=== PATIENT | female | born 1950 | race Caucasian/White ===

== ENCOUNTER 2022-07-31 12:37 | Outpatient (CLI) | payer MEDICARE, SELFPAY ==
--- NOTE | 2022-07-31 12:45 | ECHO_ITS ---
Patient Info Name: Francisca Flores Age: 72 years : 1950 Gender: Female Ht: 61 in Wt: 209 lbs BSA: 2.07 m2 HR: 87 bpm BP: 108 / 60 mmHg Technical Quality: Fair Exam Date: 07/31/2022 1:25 PM Exam Location: [facility] Patient Status: Outpatient Admit Date: 07/31/2022 Staff Ordering Physician: Fei Tovar DO Brimming Machine Operator: Jennifer Ravi RDCS Attending Provider: Fei Tovar DO Referring Physician: Guy LOPEZ; Exam Type: CA echo doppler color flow Study Info Indications N18.3 - Chronic kidney disease, stage 3 (moderate) Complete two-dimensional, color flow and Doppler transthoracic echocardiogram is performed. Summary 1. Complete two-dimensional, color flow and Doppler transthoracic echocardiogram is performed. 2. Left ventricular chamber dimension is normal. 3. Left ventricular systolic function is normal, estimated at 65-70%. 4. The left ventricular diastolic function is grade I diastolic dysfunction. 5. E/e' 15 is elevated. 6. There is mild aortic valve sclerosis. 7. There is mild aortic valve stenosis based on a peak velocity of 185 cm/s, mean gradient of 9 mmHg, and aortic valve area of 1.8 cm2. 8. There is trace tricuspid valve regurgitation. 9. No pulmonary hypertension, estimated pulmonary arterial systolic pressure is 33 mmHg. Left Ventricle E/e' 15 is elevated. Left ventricular chamber dimension is normal. Left ventricular systolic function is normal, estimated at 65-70%. The left ventricular diastolic function is grade I diastolic dysfunction. Right Ventricle Right ventricular systolic function is normal and with normal TAPSE 1.8 cm. Right ventricular chamber dimension is normal. Left Atria Left atrial chamber dimension is normal. Right Atria Right atrial chamber dimension is normal. Aortic Valve There is mild aortic valve stenosis based on a peak velocity of 185 cm/s, mean gradient of 9 mmHg, and aortic valve area of 1.8 cm2. The aortic valve is probable trileaflet. There is mild aortic valve sclerosis. There is no aortic valve regurgitation. Pulmonic Valve There is no pulmonic regurgitation. Mitral Valve There is no mitral valve stenosis. There is no mitral valve regurgitation. Tricuspid Valve There is trace tricuspid valve regurgitation. No pulmonary hypertension, estimated pulmonary arterial systolic pressure is 33 mmHg. Pericardium/Pleural There is no pericardial effusion. Inferior Vena Cava Normal inferior vena cava with >50% collapse upon inspiration consistent with normal right atrial pressure, 5 mmHg. Aorta The aortic root size at the sinus of Valsalva is normal. Left Ventricular Outflow Tract Name Value Normal LVOT 2D LVOT Diameter 2.0 cm LVOT Doppler LVOT Peak Gradient 5 mmHg LVOT Mean Gradient 4 mmHg LVOT VTI 21 cm LVOT VTI/AV VTI Ratio 0.6 LVOT Stroke Volume 63 ml LVOT CO 5.5 l/min LVOT CI 2.7 l/min/m2
== END 2022-07-31 12:38 | disposition home or self-care (01) ==
PROVIDERS: Visit Provider Internal Medicine Cardiovascular Disease
DX: N18.30 Chronic kidney disease, stage 3 unspecified (principal); I35.1 Nonrheumatic aortic (valve) insufficiency
CPT/HCPCS: 93306

== ENCOUNTER 2024-04-14 14:19 | Outpatient (CLI) | payer MEDICARE, SELFPAY ==
--- NOTE | 2024-04-14 14:22 | ECHO_ITS ---
Patient Info Name: Francisca Flores Age: 73 years : 1950 Gender: Female Ht: 61 in Wt: 190 lbs BSA: 1.97 m2 HR: 80 bpm BP: 129 / 65 mmHg Heart Rhythm: Sinus Rhythm Technical Quality: Fair Exam Date: 04/14/2024 2:29 PM Exam Location: Echo Lab Patient Status: Outpatient Admit Date: 04/14/2024 Staff Ordering Physician: Fei Tovar DO Business Leader: Lisa Salas RDCS Attending Provider: Fei Tovar DO Referring Physician: Guy LOPEZ; Exam Type: CA echo doppler color flow Study Info Indications I35.0 - Nonrheumatic aortic (valve) stenosis Complete two-dimensional, color flow and Doppler transthoracic echocardiogram is performed. Summary 1. Complete two-dimensional, color flow and Doppler transthoracic echocardiogram is performed. 2. Left ventricular chamber dimension is normal. 3. Left ventricular systolic function is normal, estimated at 65-70%. 4. The left ventricular diastolic function is grade I diastolic dysfunction. 5. E/e' 21 is elevated. 6. Left atrial chamber dimension is mildly enlarged. 7. There is severe aortic valve sclerosis. 8. There is moderate aortic valve stenosis based on a peak velocity of 228 cm/s, mean gradient of 11 mmHg, and aortic valve area of 1.3 cm2. 9. No pulmonary hypertension, estimated pulmonary arterial systolic pressure is 32 mmHg. Left Ventricle E/e' 21 is elevated. Left ventricular chamber dimension is normal. Left ventricular systolic function is normal, estimated at 65-70%. The left ventricular diastolic function is grade I diastolic dysfunction. Right Ventricle Right ventricular systolic function is normal and with normal TAPSE 2.2 cm. Right ventricular chamber dimension is normal. Left Atria Left atrial chamber dimension is mildly enlarged. Right Atria Right atrial chamber dimension is normal. Aortic Valve The aortic valve is probable trileaflet. There is severe aortic valve sclerosis. There is moderate aortic valve stenosis based on a peak velocity of 228 cm/s, mean gradient of 11 mmHg, and aortic valve area of 1.3 cm2. There is no aortic valve regurgitation. Pulmonic Valve There is no pulmonic regurgitation. Mitral Valve There is no mitral valve stenosis. There is no mitral valve regurgitation. Tricuspid Valve There is no tricuspid valve regurgitation. No pulmonary hypertension, estimated pulmonary arterial systolic pressure is 32 mmHg. Pericardium/Pleural There is no pericardial effusion. Inferior Vena Cava Normal inferior vena cava with >50% collapse upon inspiration consistent with normal right atrial pressure, 5 mmHg. Aorta The aortic root size at the sinus of Valsalva is normal. Left Ventricular Outflow Tract Name Value Normal LVOT 2D LVOT Diameter 2.0 cm LVOT Doppler LVOT Peak Gradient 4 mmHg LVOT Mean Gradient 2 mmHg LVOT VTI 19 cm LVOT VTI/AV VTI Ratio 0.4 LVOT Stroke Volume 58 ml LVOT CO 4.4 l/min LVOT CI 2.2 l/min/m2 Pulmonic Valve
== END 2024-04-14 14:20 | disposition home or self-care (01) ==
LOC: ANHCARD 14:20
PROVIDERS: PCP Physician Assistant; Visit Provider Internal Medicine Cardiovascular Disease
DX: I35.8 Other nonrheumatic aortic valve disorders (principal); I51.89 Other ill-defined heart diseases
CPT/HCPCS: 93306

== ENCOUNTER 2025-02-08 11:43 | Outpatient (CLI) | payer MEDICARE, SELFPAY ==
--- NOTE | ~2025-02-08 | XR_ITS ---
AP view of the pelvis and AP and lateral views of the left hip Clinical history: Pain Findings: No acute fracture or dislocation is seen. Osseous alignment is anatomic. Bilateral hip arth roplasties are in place. Soft tissues are unremarkable. Impression: No acute abnormality is seen. Bilateral hip arthroplasties. Reviewed, dictated and finalized at [facility]. Impression: No acute abnormality is seen. Bilateral hip arthroplasties.
== END 2025-02-08 11:44 | disposition home or self-care (01) ==
LOC: GOSHIMG 11:44
PROVIDERS: PCP Physician Assistant; Visit Provider Orthopaedic Surgery
DX: Z96.642 Presence of left artificial hip joint (principal)
CPT/HCPCS: 73502

== ENCOUNTER 2025-05-07 12:33 | Outpatient (CLI) | payer MEDICARE, SELFPAY ==
--- OUTSIDE RECORDS SUMMARY | 2025-05-07 12:37 | XMS_ITS | Encounter Summary ---
Author Organization [facility] Address [address] [place] [address] Phone Care Team Providers Care Bull Float Finisher Name Role Phone Anny Sheikh PAC Primary Care Pro vider Reason for Visit * Reason Comments Medication Refill Encounter Details Date Type Department Care Team (Late st Contact Info) Description 03/01/2021 Refill [facility] - Family Medicine [facility] [address] [place] [address] Anny Sheikh, PAC [address] [address] Medication Refill Social History Tobacco Use Types Packs/Day Years Used Date Smoking Tobacco: Never Smokeless Tobacco: Never Alcohol Use Standard Drinks/Week Comments No 0 (1 standard drink = 0.6 oz pur e alcohol) 2 drinks per year PHQ-2 Answer Date Recorded PHQ-2 Score 0 06/26/2019 Education Answer Date Recorded What is the highest level of school you have completed or the highest degree you have received? Some college, no degree 11/05/2020 Comments No Sex and Gender Information Value Date Recorded Sex Assigned at Not on file Legal Sex Female 9:47 PM CDT Gender Identity Not on file Sexual Orientation Not on file documented as of this encounter Miscellaneous Notes * Telephone Encounter - Rosaline Moore RN - 03/03/2021 9:51 AM CDT Medication failed the protocol, provider to review and approve the medication order if appropriate. Requested Prescriptions Pending Prescriptions Disp Refills pramipexole (MIRAPEX) 0.5 MG Tablet [Pharmacy Med Name: PRAMIPEXOLE 0.5 MG TABLET] 90 Tablet 0 Sig: TAKE 1 TABLET BY MOUTH EVERY DAY AT NIGHT [facility] Neurology: Parkinsonian Agents Passed - 03/01/2021 8:22 PM Passed - Valid encounter within last 12 months Past Office Visits Recent Outpatient Visits 3 months ago Type 2 diabetes mellitus without complication, unspecified whether intermediate insulin use (HCC) [facility] - Anny Orellana PAC 7 months ago Type 2 diabetes mellitus without complication, unspecified whether watcher automat long goods insulin use (HCC) [facility] - Anny Orellana PAC 10 months ago Hyperlipidemia, unspecified hyperlipidemia type [facility] - Anny Orellana PAC 1 year ago Hyperlipidemia, unspecified hyperlipidemia type [facility] - Anny Orellana PAC 1 year ago Elevated BUN [facility] - Anny Orellana PAC Upcoming Appointments Future Appointments In 2 months Anny Sheikh PAC [facility] Internal Medicine - [place] MILITARY SCIENCE TEACHER - Recent and Past Visits Recent Visits Date Type Provider Dept 11/10/20 Office Visit Anny Sheikh PAC [facility] 08/05/20 Office Visit Anny Sheikh PAC [facility] 05/05/20 Office Visit Anny Sheikh PAC [facility] Showing recent visits within past 460 days with a meds authorizing provider and meeting all other requirements Future Appointments Date Type Provider Dept 05/10/21 Appointment Anny Sheikh PAC [facility] Showing future appointments within next 90 days with a meds authorizing provider and meeting all other requirements Passed - Last BP in normal range BP Readings from Last 1 Encounters: 11/10/20 128/70 documented in this encounter Plan of Treatment Upcoming Encounters Date Type Department Care Team (Late st Contact Info) Description 10/13/2025 10:45 AM YARD DEMURRAGE CLERK Office Visit [facility] - Internal Medicine - [place] [address] [place] [address] Anny Sheikh, PAC [address] [place] [address] documented as of this encounter Visit Diagnoses Not on filedocumented in this encounter Additional Health Concerns Infection Onset Date Last Indicated Resolved Time COVID - 19 04/07/2021 04/07/2021 04/08/2021 6:43 AM CDT Assessment Noted Time PHQ-9 Depression Total Score: 0 11/05/19 9:00 AM YARD DEMURRAGE CLERK documented as of this encounter Care Teams Bull Float Finisher Relationship Specialty Start Date End Date Anny Sheikh, PAC [address] [place] [address] PCP - General Physician Electrician Deck 09/26/16 documented as of this encounter
--- OUTSIDE RECORDS SUMMARY | 2025-05-07 12:37 | XMS_ITS | Encounter Summary ---
Author Organization [facility] Address [address] [place] [address] Phone Care Team Providers Care Dental Hygienist Name Role Phone Anny Sheikh PAC Primary Care Pro vider Reason for Visit * Reason Comments Medication Refill Encounter Details Date Type Department Care Team (Late st Contact Info) Description 10/12/2020 Refill [facility] - [facility] [address] [place] [address] Anny Sheikh, PAC [address] [place] [address] Medication Refill Social History Tobacco Use Types Packs/Day Years Used Date Smoking Tobacco: Never Smokeless Tobacco: Never Alcohol Use Standard Drinks/Week Comments No 0 (1 standard drink = 0.6 oz pur e alcohol) 2 drinks per year PHQ-2 Answer Date Recorded PHQ-2 Score 0 06/26/2019 Comments No Sex and Gender Information Value Date Recorded Sex Assigned at Not on file Legal Sex Female 9:47 PM CDT Gender Identity Not on file Sexual Orientation Not on file documented as of this encounter Miscellaneous Notes * Telephone Encounter - Addis Jean Baptiste RN - 10/12/2020 3:39 PM CST This is a duplicate request of medication ordered 2020-10-10 STITCHER documented in this encounter Plan of Treatment Upcoming Encounters Date Type Department Care Team (Late st Contact Info) Description 10/13/2025 10:45 AM LOCKSTITCHER Office Visit [facility] - Internal Medicine - [place] [address] [place] [address] Anny Sheikh, PAC [address] [place] [address] documented as of this encounter Visit Diagnoses Not on filedocumented in this encounter Additional Health Concerns Infection Onset Date Last Indicated Resolved Time COVID - 19 04/07/2021 04/07/2021 04/08/2021 6:43 AM CDT Assessment Noted Time PHQ-9 Depression Total Score: 0 11/05/19 20 9:00 AM LOCKSTITCHER documented as of this encounter Care Teams Dental Hygienist Relationship Specialty Start Date End Date Anny Sheikh, PAC [address] [place] [address] PCP - General Physician Trim Technician 09/26/16 documented as of this encounter
--- OUTSIDE RECORDS SUMMARY | 2025-05-07 12:37 | XMS_ITS | Clinical Summary ---
Author Organization [facility] [employer] [facility] , [facility] Address [address] [place] [phone] Phone Care Team Providers Care Furnace Room Supervisor Name Role Phone Anny Sheikh Primary Care Provider Allergies Active Allergy Reactions Criticality Noted Date Comments Dexameth Sod Phos & Anesthetic Other (see comments) 09/29/2021 Propofol Nausea And Vomiting,Nausea Low 12/19/2017 Sertraline Other (see comments) Medium 12/19/2017 Vision problems Trolamine (Triethanolamine) Nausea And Vomiting,Other (see comments) Low 03/20/2018 Medications losartan (COZAAR) 100 MG tablet TAKE 1 TABLET BY MOUTH AT BEDTIME 90 tablet 1 12/11/2024 Active atorvastatin (LIPITOR) 40 MG tablet TAKE 1 TABLET BY MOUTH AT BEDTIME 90 tablet 1 01/16/2025 Active indapamide (LOZOL) 1.25 MG tablet TAKE 1 TABLET (1.25 MG TOTAL) BY MOUTH 1 (ONE) TIME EACH DAY IN THE MORNING 90 tablet 1 02/16/2025 Active amLODIPine (NORVASC) 5 MG tablet Take 1 tablet (5 mg total) by mouth at bed time 90 tablet 04/02/2025 Active ergocalciferol 1.25 MG (95843 UT) capsule TAKE 1 CAPSULE (50,000 UNITS TOTAL) BY MOUTH ONCE WEEKLY 12 capsule 1 04/07/2025 Active Active Problems Problem Noted Date Diagnosed Date Essential hypertension 05/03/2025 Encounters Date Type Department Care Team Description 05/03/2025 Orders Only [facility] [address] [address] Makenna Fermin Essential hypertension (Primary Dx) 04/08/2025 Office Communication [address] [address] Yobani Camarillo, 04/07/[address] [phone] Yobani Camarillo, 04/02/2025 9:30 AM CDT Office Visit [address] [phone] Yobani Camarillo DO Stage 3 chronic kidney disease, not otherwise specified (HCC) (Primary Dx); Aortic valve stenosis; Paraneoplastic neuromyopathy and neuropathy (HCC); Ovarian cancer (HCC); Hypertensive chronic kidney disease; Type 2 diabetes mellitus with diabetic chronic kidney disease (HCC); Pure hypercholesterolemia , not otherwise specified 03/25/2025 Documentation Only [address] [phone] Yobani Camarillo DO 02/14/[address] [phone] Yobani Camarillo DO from Last 3 Months Social History Tobacco Use Types Packs/Day Years Used Date Smoking Tobacco: Never Alcohol Use Standard Drinks/Week Comments Yes 0 (1 standard drink = 0.6 oz pure alcohol) Alcoholic Drinks/day: Occasional social drink Comments Unknown Sex and Gender Information Value Date Recorded Sex Assigned at Not on file Legal Sex Female 2:50 PM EDT Gender Identity Not on file Sexual Orientation Not on file Last Filed Vital Signs Vital Sign Reading Time Taken Comments Blood Pressure 140/68 04/02/2025 9:35 AM CDT Pulse 66 04/02/2025 9:35 AM CDT Temperature 36.2 C (97.2 F) 04/02/2025 9:35 AM CDT Respiratory Rate 20 04/02/2025 9:35 AM CDT Oxygen Saturation 97% 04/02/2025 9:35 AM CDT Inhaled Oxygen Concentration - - Weight 83.5 kg (184 lb) 04/02/2025 9:35 AM CDT Height 154.9 cm (5' 1) 04/02/2025 9:35 AM CDT Body Mass Index 34.77 04/02/2025 9:35 AM CDT Plan of Treatment Upcoming Encounters Date Type Department Care Team (Late st Contact Info) Description 07/09/2025 9:15 AM CDT Office Visit [facility] [address] [phone] [place] [address] [place] [phone] Health Maintenance Due Date Last Done Comments Diabetes: Ophthalmology Exam 03/23/2021 Diabetes: Pedal Pulse Checked 03/23/2021 Diabetes: Sensory Foot Exam 03/23/2021 Diabetes: Visual Foot Exam 03/23/2021 Diabetes: Hemoglobin A1C 06/24/2025 025, 10/01/2024, 08/19/2024, Additional history exists Influenza Vaccine (#1) 2025 0, 08/17/2019, 07/29/2018, Additional history exists Pneumococcal Vaccine: 50+ Years Completed 07/23/2017, 02/07/2016, 10/28/2009 Hepatitis B Vaccine Aged Out No longe r eligible based on patient's age to complete this topic Insurance Medicare [facility]IC [facility] Care Teams Furnace Room Supervisor Relationship Specialty Start Date End Date Anny Sheikh PA [address] [place] [address] PCP - General Physician Sheet Metal Production Worker 08/15/21
--- OUTSIDE RECORDS SUMMARY | 2025-05-07 12:37 | XMS_ITS | Encounter Summary ---
Author Organization [facility] Address [address] [place] [address] Phone Care Team Providers Care Sock Liner Name Role Phone Anny Sheikh PAC Primary Care Pro vider Reason for Visit * Reason Comments Medication Refill Encounter Details Date Type Department Care Team (Late st Contact Info) Description 04/18/2023 [facility]ill [facility] - [place] [address] [place] [phone] Anny Sheikh, PAC [address] [place] [address] Medication Refill Social History Tobacco Use Types Packs/Day Years Used Date Smoking Tobacco: Never Smokeless Tobacco: Never Alcohol Use Standard Drinks/Week Comments No 0 (1 standard drink = 0.6 oz pur e alcohol) 2 drinks per year PHQ-2 Answer Date Recorded Total Score - Questions 1-9 0 12/26 Education Answer Date Recorded What is the [...] encounter Miscellaneous Notes * Telephone Encounter - Roseann Escalona RN - 04/18/2023 8:43 AM CDT Medication failed the protocol, provider to review and approve the medication order if appropriate. Requested Prescriptions Pending Prescriptions Disp Refills fenofibrate micronized (LOFIBRA) 200 MG Capsule [Pharmacy Med Name: FENOFIBRATE CAP 200MG] 90 Capsule 3 Sig: TAKE 1 CAPSULE DAILY Fibrates Protocol Failed - 04/18/2023 12:51 AM Failed - Lipid panel in past 12 months LDL Date Value Ref Range Status 05/05/2021 59 5 - 130 mg/dL Final HDL CHOLESTEROL Date Value Ref Range Status 05/05/2021 39.5 (L) >40 mg/dL Final CHOLESTEROL Date Value Ref Range Status 05/05/2021 139 <=200 mg/dL Final TRIGLYCERIDES Date Value Ref Range Status 05/05/2021 202 (H) <150 mg/dL Final VLDL Date Value Ref Range Status 05/05/2021 40 5 - 55 mg/dL Final CHOL/HDL RATIO Date Value Ref Range Status 05/05/2021 3.5 0.0 - 4.4 Final NON-HDL CHOLESTEROL Date Value Ref Range Status 05/05/2021 99.5 <130 mg/dL Final Passed - Visit with relevant provider in past 12 months or upcoming 90 days Recent Visits Date Type Provider Dept 01/23/23 Office Visit Anny Sheikh PAC [facility] 07/25/22 Office Visit Anny Sheikh, SUPRIYA [facility] [place] Showing recent visits within past 365 days and meeting all other requirements Future Appointments No visits were found meeting these conditions. Showing future appointments within next 90 days and meeting all other requirements documented in this encounter Plan of Treatment Upcoming Encounters Date Type Department Care Team (Late st Contact Info) Description 10/13/2025 10:45 AM COKE DRAWER Office Visit [facility] - Internal Medicine - [place] [address] [place] [address] Anny Sheikh, PAC [address] [place] [address] documented as of this encounter Visit Diagnoses Not on filedocumented in this encounter Additional Health Concerns Assessment Noted Time PHQ-9 Depression Total Score: 0 05/10/20 21 9:00 AM CDT documented as of this encounter Care Teams Sock Liner Relationship Specialty Start Date End Date Anny Sheikh, PAC [address] [place] [address] PCP - General Physician Filament Shaper 09/26/16 documented as of this encounter
--- OUTSIDE RECORDS SUMMARY | 2025-05-07 12:37 | XMS_ITS | Encounter Summary ---
Author Organization [facility] Address [address] [place] [address] Phone Care Team Providers Care Traffic Clerk Name Role Phone Anny Sheikh PAC Primary Care Pro vider Reason for Visit * Reason Comments Medication Refill Encounter Details Date Type Department Care Team (Late st Contact Info) Description 01/24/2021 Refill [facility] - Family Medicine [facility] [address] [place] [address] Anny Sheikh, PAC [address] [place] [address] Medication Refill Social History Tobacco [...] encounter Miscellaneous Notes * Telephone Encounter - Catrachita Dumont RN - 01/25/2021 9:31 AM CDT Please review and sign. documented in this encounter Plan of Treatment Upcoming Encounters Date Type Department Care Team (Late st Contact Info) Description 10/13/2025 10:45 AM OIL WELL SERVICES SUPERVISOR Office Visit [facility] - Internal Medicine - [place] [address] [place] [address] Anny Sheikh, SUPRIYA [address] [place] [address] documented as of this encounter Visit Diagnoses Not on filedocumented in this encounter Additional Health Concerns Infection Onset Date Last Indicated Resolved Time COVID - 19 04/07/2021 04/07/2021 04/08/2021 6:43 AM CDT Assessment Noted Time PHQ-9 Depression Total Score: 0 11/05/19 20 9:00 AM OIL WELL SERVICES SUPERVISOR documented as of this encounter Care Teams Traffic Clerk Relationship Specialty Start Date End Date Anny Sheikh, SUPRIYA [address] [place] [address] PCP - General Physician Knocker Out 09/26/16 documented as of this encounter
--- OUTSIDE RECORDS SUMMARY | 2025-05-07 12:37 | XMS_ITS | Encounter Summary ---
Author Organization [facility] Address [address] [place] [address] Phone Care Team Providers Care Manager Of Disaster Recovery Name Role Phone Anny Sheikh PAC Primary Care Pro vider Reason for Visit * Reason Comments Medication Refill Encounter Details Date Type Department Care Team (Late st Contact Info) Description 12/31/2023 Refill [facility] - Family Medicine [facility] [address] [place] [address] Anny Sheikh, PAC [address] [place] [address] Medication Refill Social History Tobacco [...] Telephone Encounter - Roseann Escalona RN - 01/01/2024 9:44 AM CST Medication failed the protocol, provider to review and approve the medication order if appropriate. Requested Prescriptions Pending Prescriptions Disp Refills pramipexole (MIRAPEX) 0.5 MG Tablet [Pharmacy Med Name: PRAMIPEXOLE 0.5 MG TABLET] 90 Tablet 0 Sig: TAKE 1 TABLET BY MOUTH EVERY DAY AT NIGHT Antiparkinson Dopaminergics and COMT Protocol Passed - 12/31/2023 7:04 PM Passed - Visit with relevant provider in the past 9 months or upcoming 90 days Recent Visits Date Type Provider Dept 11/08/23 Clinical [facility] 11/06/23 Office Visit Anny Sheikh, PAC [facility] 08/22/23 Office Visit Anny Sheikh, PAC [facility] 07/26/23 Office Visit Anny Sheikh, PAC [facility] 06/03/23 Office Visit Anny Sheikh, PAC [facility] Showing recent visits within past 270 days and meeting all other requirements Future Appointments Date Type Provider Dept 02/19/24 Appointment Anny Sheikh, PAC [facility] Showing future appointments within next 90 days and meeting all other requirements Passed - Blood pressure on record in past 12 months Clinician-entered: BP Readings from Last 3 Encounters: 11/06/23 102/62 08/22/23 136/66 08/15/23 120/66 Patient-entered: No data recorded benzonatate (TESSALON) 100 MG Capsule [Pharmacy Med Name: BENZONATATE 100 MG CAPSULE] 30 Capsule 0 Sig: TAKE 1 CAPSULE BY MOUTH TWICE A DAY NEEDED FOR COUGH FOR UP TO 30 DAYS Not Delegated - Anti-Tussives Protocol Failed - 12/31/2023 7:04 PM Failed - This refill cannot be delegated Failed - Active on medication list Passed - Visit with relevant provider in past 12 months or upcoming 90 days Recent Visits Date Type Provider Dept 11/06/23 Office Visit Anny Sheikh, PAC [facility] 09/05/23 Telemedicine Anny Sheikh, PAC [facility] 08/22/23 Office Visit Anny Sheikh, PAC [facility] 07/26/23 Office Visit Anny Sheikh, PAC [facility] 06/03/23 Office Visit Anny Sheikh, PAC [facility] 01/23/23 Office Visit Anny Sheikh, PAC [facility] Showing recent visits within past 365 days and meeting all other requirements Future Appointments Date Type Provider Dept 02/19/24 Appointment Anny Sheikh PAC [facility] Showing future appointments within next 90 days and meeting all other requirements ING FACULTY documented in this encounter Plan of Treatment Upcoming Encounters Date Type Department Care Team (Late st Contact Info) Description 10/13/2025 10:45 AM NURSING FACULTY Office Visit [facility] - Internal Medicine - [place] [address] [place] [address] Anny Sheikh PAC [address] [place] [address] documented as of this encounter Visit Diagnoses Not on filedocumented in this encounter Additional Health Concerns Assessment Noted Time PHQ-9 Depression Total Score: 0 05/10/20 21 9:00 AM CDT documented as of this encounter Care Teams Manager Of Disaster Recovery Relationship Specialty Start Date End Date Anny Sheikh PAC [address] [place] [address] PCP - General Physician Telephone Engineer 09/26/16 documented as of this encounter
--- OUTSIDE RECORDS SUMMARY | 2025-05-07 12:37 | XMS_ITS | Encounter Summary ---
Author Organization [facility] Address [address] [address] Phone Care Team Providers Care Screw Machine Repairer Name Role Phone Anny Sheikh PAC Primary Care Pro vider Reason for Visit * Reason Comments Medication Refill Encounter Details Date Type Department Care Team (Late st Contact Info) Description 04/17/2024 Refill [facility] - Internal Medicine - [place] [address] [place] [phone] Anny Sheikh, PAC [address] [address] Medication Refill Social History Tobacco Use Types Packs/Day Years Used Date Smoking Tobacco: Never Smokeless Tobacco: Never Alcohol Use Standard Drinks/Week Comments No 0 (1 standard drink = 0.6 oz pur e alcohol) 2 drinks per year [facility] Utilities Answer Date Recorded In the past 12 months has e electric, gas, oil, or water company threatened to shut off services in your home? No 02/17/2024 Social Connection and Isolation Panel Answer Date Recorded In a typical week, how many times do you talk on the phone with family, friends, or neighbors? Three times a week 02/17/2024 How often do you get togethe r with friends or relatives? Three times a week 02/17/2024 How often do you attend chur ch or nondenominational services? More than 4 times per year 02/17/2024 Do you belong to any clubs o r organizations such as confucianist groups, unions, fraternal or athletic groups, or school groups? No 02/17/2024 How often do you attend meet ings of the clubs or organizations you belong to? Never 02/17/2024 Are you , , di vorced, , never , or living with a partner? 02/17/2024 AUDIT-C Answer Date Recorded Q1: How often do you have a drink containing alcohol? Never 02/17/2024 Q2: How many drinks containi ng alcohol do you have on a typical day when you are drinking? Patient does not drink Q3: How often do you have si x or more drinks on one occasion? Never 02/17/2024 Overall Financial Resource Strain (CARDIA) Answe r Date Recorded How hard is it for you to pa y for the very basics like food, housing, medical care, and heating? Patient declined 02/17/2024 PHQ-2 Answer Date Recorded Total Score - Questions 1-9 0 12/26 [facility] - Occupational Stress Questionnaire Answer Date Recorded Do you feel stress - tense, restless, nervous, or anxious, or unable to sleep at night because your mind is troubled all the time - these days? Not at all 02/17/2024 Exercise Vital Sign Answer Date Recorde d On average, how many days pe r week do you engage in moderate to strenuous exercise (like a brisk walk)? 0 days 02/17/2024 On average, how many minutes do you engage in exercise at this level? 0 min 02/17/2024 Hunger Vital Sign Answer Date Recorded Within the past 12 months, y ou worried that your food would run out before you got the money to buy more. Never true 02/17/20 24 Within the past 12 months, t he food you bought just didn't last and you didn't have money to get more. Never true 02/17/2024 PRAPARE - Transportation Answer Date Re corded In the past 12 months, has l ack of transportation kept you from medical appointments or from getting medications? No 01/27 In the past 12 months, has l ack of transportation kept you from meetings, work, or from getting things needed for daily living? No 02/17/2024 Housing Stability Vital Sign Answer Dylon e Recorded In the last 12 months, was t here a time when you were not able to pay the mortgage or rent on time? No 02/17/2024 Number of Places Lived in the Last Year Not on f ile 02/17/2024 In the last 12 months, was t here a time when you did not have a steady place to sleep or slept in a snf (including now)? No 02/17/2024 Education Answer Date Recorded What is the [...] encounter Miscellaneous Notes * Telephone Encounter - Alyce Flores RN - 04/17/2024 10:46 AM CDT Medication(s) refilled and signed per [facility] Chronic Medication Refill Standing Order for Pediatricand Adult Patients. Requested Prescriptions Pending Prescriptions Disp Refills furosemide (LASIX) 20 MG Tablet [Pharmacy Med Name: FUROSEMIDE 20 MG TABLET] 90 Tablet 3 Sig: TAKE 1 TABLET BY MOUTH EVERY DAY Diuretics Protocol Passed - 04/17/2024 12:05 AM Passed - Serum potassium on record in past 12 months POTASSIUM Date Value Ref Range Status 11/06/2023 3.9 3.5 - 5.1 mmol/L Final Passed - Serum sodium on record in past 12 months SODIUM Date Value Ref Range Status 11/06/2023 138 136 - 145 mmol/L Final Passed - Blood pressure on record in past 12 months Clinician-entered: BP Readings from Last 3 Encounters: 02/19/24 106/52 11/06/23 102/62 08/22/23 136/66 Patient-entered: No data recorded Passed - Visit with relevant provider in past 12 months or upcoming 90 days Recent Visits Date Type Provider Dept 02/19/24 Office Visit Anny Sheikh, PAC [facility] [place] 11/06/23 Office Visit K[place] Anny Clark, PAC [facility] [place] 09/05/23 Telemedicine [facility] Sheikh, [facility] 08/22/23 Office Visit Anny Sheikh, PAC [facility] 07/26/23 Office Visit Anny Sheikh, PAC [facility] [place] 06/03/23 Office Visit Anny Sheikh, PAC [facility] [place] Showing recent visits within past 365 days and meeting all other requirements Future Appointments No visits were found meeting these conditions. Showing future appointments within next 90 days and meeting all other requirements Passed - GFR on record in past 12 months GFR, EST. NONAFRICAN Date Value Ref Range Status 11/06/2023 33 (L) >=60 Final documented in this encounter Plan of Treatment Upcoming Encounters Date Type Department Care Team (Late st Contact Info) Description 10/13/2025 10:45 AM DIRECTOR OF STAFF DEVELOPMENT [facility] [place] [address] [place] [address] Anny Sheikh PAC [address] [place] [address] documented as of this encounter Visit Diagnoses Not on filedocumented in this encounter Additional Health Concerns Assessment Noted Time PHQ-9 Depression Total Score: 0 05/10/20 21 9:00 AM CDT documented as of this encounter Care Teams Screw Machine Repairer Relationship Specialty Start Date End Date Anny Sheikh PAC [address] [place] [address] PCP - General Physician College Recruiter 09/26/16 documented as of this encounter
--- OUTSIDE RECORDS SUMMARY | 2025-05-07 12:37 | XMS_ITS | Encounter Summary ---
Author Organization [facility] Address [address] [place] [address] Phone Care Team Providers Care Netezza Developer Name Role Phone Anny Sheikh PAC Primary Care Pro vider Reason for Visit * Reason Comments Medication Refill Encounter Details Date Type Department Care Team (Late st Contact Info) Description 10/13/2021 [facility]ill [facility] - [place] [address] [place] [phone] Anny Sheikh, PAC [address] [place] [address] Medication Refill Social History Tobacco Use Types Packs/Day Years Used Date Smoking Tobacco: Never Smokeless Tobacco: Never Alcohol Use Standard Drinks/Week Comments No 0 (1 standard drink = 0.6 oz pur e alcohol) 2 drinks per year PHQ-2 Answer Date Recorded Total Score - Questions 1-9 0 04/27 Education Answer Date Recorded What is the highest level of school you have completed or the highest degree you have received? Some college, no degree 11/05/2020 Comments No Sex and Gender Information Value Date Recorded Sex Assigned at Not on file Legal Sex Female 9:47 PM CDT Gender Identity Not on file Sexual Orientation Not on file COVID-19 Exposure Response Date Recorded In the last month, have you been in contact with someone who was confirmed or suspected to have Coronavirus / COVID-19? No / Unsure 10/12/2021 1:05 PM REELING MACHINE SETUP OPERATOR documented as of this encounter Miscellaneous Notes * Telephone Encounter - Mirlande Madden RN - 10/13/2021 10:27 AM REELING MACHINE SETUP OPERATOR Medication failed the protocol, provider to review and approve the medication order if appropriate. Requested Prescriptions Pending Prescriptions Disp Refills triamterene-hydrochlorothiazide (MAXZIDE) 37.5-25 MG Tablet [Pharmacy Med Name: TRIAMTERENE-HCTZ 37.5-25 MG TB] 90 Tablet 0 Sig: TAKE 1 TABLET BY MOUTH EVERY DAY Diuretics Protocol Failed - 10/13/2021 12:56 AM Failed - Active on medication list Passed - Serum potassium on record in past 12 months POTASSIUM Date Value Ref Range Status 05/05/2021 4.1 3.5 - 5.1 mmol/L Final Passed - Serum sodium on record in past 12 months SODIUM Date Value Ref Range Status 05/05/2021 138 136 - 144 mmol/L Final Passed - Blood pressure on record in past 12 months Clinician-entered: BP Readings from Last 3 Encounters: 10/12/21 130/70 05/10/21 124/70 04/07/21 128/62 Patient-entered: No data recorded Passed - Visit with relevant provider in past 12 months or upcoming 90 days Recent Visits Date Type Provider Dept 10/12/21 Office Visit Anny Sheikh PAC [facility] [place] 05/10/21 Office Visit Anny Sheikh PAC [facility] [place] 11/10/20 Office Visit Anny Sheikh PAC [facility] Showing recent visits within past 365 days and meeting all other requirements Future Appointments Date Type Provider Dept 11/15/21 Appointment Anny Sheikh PAC [facility] [place] 01/11/22 Appointment Anny Sheikh PAC [facility] [place] Showing future appointments within next 90 days and meeting all other requirements Passed - GFR on record in past 12 months GFR, EST. NONAFRICAN Date Value Ref Range Status 05/05/2021 45 (L) >=60 Final ING MACHINE SETUP OPERATOR documented in this encounter Plan of Treatment Upcoming Encounters Date Type Department Care Team (Late st Contact Info) Description 10/13/2025 10:45 AM REELING MACHINE SETUP OPERATOR Office Visit [facility] - Internal Medicine - [place] [address] [place] [address] Anny Sheikh, PAC [address] [place] [address] documented as of this encounter Visit Diagnoses Diagnosis Essential hypertension Unspecified essential hypertension documented in this encounter Additional Health Concerns Assessment Noted Time PHQ-9 Depression Total Score: 0 05/10/20 21 9:00 AM CDT documented as of this encounter Care Teams Netezza Developer Relationship Specialty Start Date End Date Anny Sheikh, PAC [address] [place] [address] PCP - General Physician Human Resources District Manager 09/26/16 documented as of this encounter
--- OUTSIDE RECORDS SUMMARY | 2025-05-07 12:37 | XMS_ITS | Encounter Summary ---
Author Organization [facility] Address [address] [place] [address] Phone Care Team Providers Care Converting Technician Name Role Phone Anny Sheikh PAC Primary Care Pro vider Reason for Visit * Reason Comments Medication Refill Encounter Details Date Type Department Care Team (Late st Contact Info) Description 04/19/2023 Refill [facility] - [place] [address] [place] [phone] Anny Sheikh, PAC [address] [place] [address] Medication Refill Social History Tobacco [...] Telephone Encounter - Roseann Escalona RN - 04/19/2023 2:13 PM CDT Medication failed the protocol, provider to review and approve the medication order if appropriate. Requested Prescriptions Pending Prescriptions Disp Refills furosemide (LASIX) 20 MG Tablet [Pharmacy Med Name: FUROSEMIDE 20 MG TABLET] 90 Tablet 3 Sig: TAKE 1 TABLET BY MOUTH EVERY DAY Diuretics Protocol Failed - 04/19/2023 1:16 PM Failed - Serum potassium on record in past 12 months POTASSIUM Date Value Ref Range Status 05/05/2021 4.1 3.5 - 5.1 mmol/L Final Failed - Serum sodium on record in past 12 months SODIUM Date Value Ref Range Status 05/05/2021 138 136 - 144 mmol/L Final Failed - GFR on record in past 12 months GFR, EST. NONAFRICAN Date Value Ref Range Status 05/05/2021 45 (L) >=60 Final Passed - Blood pressure on record in past 12 months Clinician-entered: BP Readings from Last 3 Encounters: 01/23/23 142/78 07/25/22 128/60 01/11/22 118/54 Patient-entered: No data recorded Passed - Visit with relevant provider in past 12 months or upcoming 90 days Recent Visits Date Type Provider Dept 01/23/23 Office Visit Anny Sheikh, SUPRIYA [facility] [place] 07/25/22 Office Visit Anny Sheikh, [facility] Showing recent visits within past 365 days and meeting all other requirements Future Appointments No visits were found meeting these conditions. Showing future appointments within next 90 days and meeting all other requirements benzonatate (TESSALON) 100 MG Capsule [Pharmacy Med Name: BENZONATATE 100 MG CAPSULE] 30 Capsule 0 Sig: Take 1 Capsule by mouth 2 times daily as needed for Cough for up to 30 days. Not Delegated - Anti-Tussives Protocol Failed - 04/19/2023 1:16 PM Failed - This refill cannot be delegated Failed - Active on medication list Passed - Visit with relevant provider in past 12 months or upcoming 90 days Recent Visits Date Type Provider Dept 01/23/23 Office Visit Anny Sheikh PAC [facility] 07/25/22 [facility] [place] Show[facility] recent visits within past 365 days and meeting all other requirements Future Appointments No visits were found meeting these conditions. Showing future appointments within next 90 days and meeting all other requirements documented in this encounter Plan of Treatment Upcoming Encounters Date Type Department Care Team (Late st Contact Info) Description 10/13/2025 10:45 AM OPHTHALMIC TECH [facility] - [place] [address] [place] [address] Anny Sheikh PAC [address] [place] [address] documented as of this encounter Visit Diagnoses Not on filedocumented in this encounter Additional Health Concerns Assessment Noted Time PHQ-9 Depression Total Score: 0 05/10/20 21 9:00 AM CDT documented as of this encounter Care Teams Converting Technician Relationship Specialty Start Date End Date Anny Sheikh PAC [address] [place] [address] PCP - General Physician District Adviser 09/26/16 documented as of this encounter
--- OUTSIDE RECORDS SUMMARY | 2025-05-07 12:37 | XMS_ITS | Encounter Summary ---
Author Organization [facility] Address [address] [address] Phone Care Team Providers Care Guest Service Agent Name Role Phone Anny Sheikh PAC Primary Care Pro vider Reason for Visit * Reason Comments Medication Refill Encounter Details Date Type Department Care Team (Late st Contact Info) Description 05/21/2022 Refill [facility] - [facility] - [place] [address] [place] [phone] Anny Sheikh, PAC [address] [place] [address] Medication Refill Social History Tobacco [...] Telephone Encounter - Catrachita Dumont RN - 05/21/2022 3:31 PM CDT Medication failed the protocol, provider to review and approve the medication order if appropriate. Requested Prescriptions Pending Prescriptions Disp Refills simvastatin (ZOCOR) 20 MG Tablet [Pharmacy Med Name: SIMVASTATIN 20 MG TABLET] 90 Tablet 3 Sig: TAKE 1 TABLET BY MOUTH EVERY DAY IN THE EVENING Hmg CoA Reductase Inhibitors Protocol Failed - 05/21/2022 12:07 AM Failed - Lipid panel in past [...] days Recent Visits Date Type Provider Dept 01/11/22 Office Visit Anny Sheikh PAC [facility] [place] 11/22/21 Office Visit Anny Sheikh PAC [facility] [place] 10/12/21 Office Visit Anny Sheikh PAC [facility] [place] Showing recent visits within past 365 days and meeting all other requirements Future Appointments Date Type Provider Dept 07/25/22 Appointment Anny Sheikh PAC [facility] [place] Showing future appointments within next 90 days and meeting all other requirements documented in this encounter Plan of Treatment Upcoming Encounters Date Type Department Care Team (Late st Contact Info) Description 10/13/2025 10:45 AM CARTRIDGE LOADING OPERATOR Office Visit [facility] - Internal Medicine - [place] [address] [place] [address] Anny Sheikh PAC [address] [place] [address] documented as of this encounter Visit Diagnoses Not on filedocumented in this encounter Additional Health Concerns Assessment Noted Time PHQ-9 Depression Total Score: 0 05/10/20 21 9:00 AM CDT documented as of this encounter Care Teams Guest Service Agent Relationship Specialty Start Date End Date Anny Sheikh PAC [address] [place] [address] PCP - General Physician Retort Condenser Attendant 09/26/16 documented as of this encounter
--- OUTSIDE RECORDS SUMMARY | 2025-05-07 12:37 | XMS_ITS | Clinical Summary ---
Author Organization [facility] Address [address] [place] [address] Care Team Providers Care Intermission Coordinator Name Role Phone Unavailable Primary Care Provider Unavailabl e Social History Tobacco Use Types Packs/Day Years Used Date Smoking Tobacco: Never Assessed Comments Unknown Sex and Gender Information Value Date Recorded Sex Assigned at Not on file Legal Sex Female 6:43 PM CDT Gender Identity Not on file Sexual Orientation Not on file Plan of Treatment Health Maintenance Due Date Last Done Comments Colorectal Cancer Screening Colonoscopy (10 Years) 1949 Hepatitis C 1967 DTaP, Tdap and Td Vaccines ( 1 - Tdap) 1968 Pneumococcal Vaccine: 50+ Ye ars (1 of 1 - PCV) 1999 Zoster Vaccines (1 of 2) 1999 Dexa Scan (General) 2014 RSV Immunization or 60+ Years (1 - 1-dose 75+ series) 2024 COVID-19 Vaccine ( - 2023-2 5 season) 2024 Meningococcal B Vaccine Aged Out No l onger eligible based on patient's age to complete this topic Meningococcal Vaccine Aged Out No dontae cong eligible based on patient's age to complete this topic RSV Immunizations Under 20 Months Aged Out No longer eligible based on patient's age to complete this topic
--- OUTSIDE RECORDS SUMMARY | 2025-05-07 12:37 | XMS_ITS | Encounter Summary ---
Author Organization [facility] Address [address] [place] [address] Phone Care Team Providers Care Membership Advisor Name Role Phone Anny Sheikh PAC Primary Care Pro vider Reason for Visit * Reason Comments Medication Refill Encounter Details Date Type Department Care Team (Late st Contact Info) Description 04/23/2023 Refill [facility] - Family Medicine [facility] [address] [place] [address] Anny Sheikh, PAC [address] [place] [address] Medication Refill Social History Tobacco [...] encounter Miscellaneous Notes * Telephone Encounter - Riana Castro RN - 04/24/2023 2:34 PM CDT Images from the original note were not included. Refill request too soon. Pramipexole Dihydrochloride Dispensed Days Supply Quantity Provider Pharmacy PRAMIPEXOLE 0.5 MG TABLET 04/15/2023 90 90 Each Anny Sheikh, SUPRIYA [id number] documented in this encounter Plan of Treatment Upcoming Encounters Date Type Department Care Team (Late st Contact Info) Description 10/13/2025 10:45 AM RESEARCH MICROBIOLOGIST Office Visit [facility] - Internal Medicine - [place] [address] [place] [address] Anny Sheikh, SUPRIYA [address] [place] [address] documented as of this encounter Visit Diagnoses Not on filedocumented in this encounter Additional Health Concerns Assessment Noted Time PHQ-9 Depression Total Score: 0 05/10/20 21 9:00 AM CDT documented as of this encounter Care Teams Membership Advisor Relationship Specialty Start Date End Date Anny Sheikh, SUPRIYA [address] [place] [address] PCP - General Physician Benefit Authorizer 09/26/16 documented as of this encounter
--- OUTSIDE RECORDS SUMMARY | 2025-05-07 12:37 | XMS_ITS | Encounter Summary ---
Author Organization [facility] Address [address] [place] [place] [address] Phone Care Team Providers Care Employment Clerk Name Role Phone Anny Sheikh PAC Primary Care Pro vider Reason for Visit * Reason Comments Medication Refill Encounter Details Date Type Department Care Team (Late st Contact Info) Description 07/24/2024 Refill [facility] - Family [facility] [address] [place] [address] Anny Sheikh, PAC [address] [place] [address] Medication Refill Social History Tobacco Use Types Packs/Day Years Used Date Smoking Tobacco: Never Smokeless Tobacco: Never Alcohol Use Standard Drinks/Week Comments No 0 (1 standard drink = 0.6 oz pur e alcohol) 2 drinks per year [facility] Utilities Answer Date Recorded In the past 12 months has [employer], gas, oil, or water company threatened [...] any clubs o r organizations such as sabianism groups, unions, fraternal or athletic groups, or [...] Total Score - Questions 1-9 0 12/26 [facility] - Occupational Stress [...] place to sleep or slept in a alf (including now)? No 02/17/2024 Education Answer Date [...] on file documented as of this encounter Plan of Treatment Upcoming Encounters Date Type Department Care Team (Late st Contact Info) Description 10/13/2025 10:45 AM [employer] Office Visit [facility] - Internal Medicine - [place] [address] [place] [address] Anny Sheikh PAC [address] [place] [address] documented as of this encounter Visit Diagnoses Not on filedocumented in this encounter Additional Health Concerns Assessment Noted Time PHQ-9 Depression Total Score: 0 05/10/20 21 9:00 AM CDT documented as of this encounter Care Teams Employment Clerk Relationship Specialty Start Date End Date Anny Sheikh PAC [address] [place] [address] PCP - General Physician Supervisor Cell Maintenance 09/26/16 documented as of this encounter
--- OUTSIDE RECORDS SUMMARY | 2025-05-07 12:37 | XMS_ITS | Clinical Summary ---
Author Organization [facility] Address [address] [place] [address] Phone Care Team Providers Care Senior Linux Engineer Name Role Phone KoriAlize floressorin Herediaelle PAC Primary Care Pro vider Allergies Active Allergy Reactions Criticality Noted Date Comments Trolamine (Triethanolamine) Unknown 03/20/20 18 Propofol Nausea Low 12/19/2017 Sertraline Hcl Unknown Vision problems Medications gabapentin (NEURONTIN) 100 MG Capsule Take 1 Cap by mouth 3 times daily. 90 Cap 018 Active glyBURIDE (DIABETA) 5 MG Tablet Take 5 mg by mouth 2 times daily. Active losartan (COZAAR) 50 MG Tablet 022 Active ergocalcifero l (VITAMIN D) 15461 UNIT Capsule TAKE 1 CAPSULE BY MOUTH ONE TIME PER WEEK 022 Active Coenzyme Q10 (CoQ10) 100 MG Capsule Take by mouth. Acti ve chlorthalidon e (HYGROTON) 25 MG Tablet TAKE 1 TABLET BY MOUTH EVERY DAY IN THE MORNING 022 Active atorvastatin (LIPITOR) 40 MG TabletIndicat ions:Hyperlip idemia Take 40 mg by mouth daily. Indications: High Amount of Fats in the Blood Active indapamide (LOZOL) 1.25 MG Tablet Take 1.25 mg by mouth. Active Ozempic, 2 MG/DOSE, 8 MG/3ML Solution Pen-injector INJECT 2 MG SUBCUTANEOUSLY ONE TIME PER WEEK Active pramipexole (MIRAPEX) 0.5 MG Tablet TAKE 1 TABLET BY MOUTH EVERY DAY AT NIGHT 90 Tablet Active insulin aspart prot & aspart (NovoLOG 70/30) (70-30) 100 UNIT/ML Suspension Pen-injector Inject 3-6 Units under the skin 3 (three) times a day with meals Active amLODIPine (NORVASC) 5 MG Tablet Take 5 mg by mouth. 025 2025 Active furosemide (LASIX) 20 MG Tablet TAKE 1 TABLET BY MOUTH EVERY DAY 90 Tablet 3 Active fenofibrate micronized (LOFIBRA) 200 MG Capsule TAKE 1 CAPSULE DAILY 90 Capsule 3 Active methylPREDNIS olone (MEDROL DOSPACK) 4 MG Tablet Therapy Pack Follow instructions on pack, take with food; Give one pack 1 Tablet 023 2024 Discontinued(T herapy completed) furosemide (LASIX) 20 MG Tablet TAKE 1 TABLET BY MOUTH EVERY DAY 90 Tablet 3 024 2024 Discontinued fenofibrate micronized (LOFIBRA) 200 MG Capsule TAKE 1 CAPSULE DAILY 90 Capsule 3 024 2024 Discontinued benzonatate (TESSALON) 100 MG Capsule TAKE 1 CAPSULE BY MOUTH TWICE A DAY NEEDED FOR COUGH FOR UP TO 30 DAYS 30 Capsule 024 2024 Discontinued(T herapy completed) Active Problems Problem Noted Date Diagnosed Date Left retinal detachment 11/06/2023 Elevated LFTs 07/26/2023 Type 2 diabetes mellitus without complication Prediabetes 05/10/2021 Overview (05/10/2021): ENDO following; [facility] Kidney disease 05/05/2020 Overview (05/10/2021): NEPHRO from [facility]; Dr Dias H/O colonoscopy 11/20/2018 Overview (11/20/2018): KIERA follows 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 Dermatophytosis of nail 03/20/2018 Ingrown nail 03/20/2018 Ovarian ca 12/04/2017 Overview (05/05/2020): Followed by Dr Marmolejo at [facility] Surgery Path showing 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 Getting chemo CT abd pelvis increase in CA125; 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 Ovarian tumor 10/07/2017 Elevated CA-125 10/07/2017 H/O mammogram 02/04/2017 Overview (11/20/2018): ; benign ; benign H/O bone density study 02/04/2017 Overview (02/04/2017): : normal Insomnia due to medical condition 09/27/2016 Anxiety 02/07/2016 ARB intolerance 09/28/2015 Essential hypertension 09/26/2015 RLS (restless legs syndrome) Hyperlipidemia Encounters Date Type Department Care Team Description 05/02/2025 [facility]ill [facility] [address] [place] [id number] Anny Sheikh, PAC Medication Refill 04/21/2025 [facility] [address] [place] [phone] Anny Sheikh, SUPRIYA Medication Refill 04/09/2025 11:00 AM CDT Office Visit [facility] Internal Medicine [facility] [address] [place] [address] Anny Sheikh, SUPRIYA Essential hypertension (Primary Dx); Need for hepatitis C screening test; Hyperlipidemia, unspecified hyperlipidemia type; Type 2 diabetes mellitus without complication, unspecified whether termite renewal inspector insulin use; Kidney disease; Encounter for screening mammogram for breast cancer Discharge Disposition: Discharged to home or Selfcare 04/09/2025 Travel 03/31/2025 Patient Outreach [facility] [address] [place] [id number] Paula Smart Care Management 02/23/2025 Results Follow-Up [facility] - Primary Care Access [address] [address] Anny Sheikh, PAC LIPID PANEL, CMP (COMPREHENSIVE METABOLIC PANEL), CBC WITH AUTO DIFFERENTIAL 02/23/2025 Refill [facility] - Internal Medicine - [place] [address] [place] [address] Anny Sheikh, SUPRIYA Medication Refill 02/22/2025 Travel from Last 3 Months Immunizations Immunization Administration Dates Next Due Influenza Vaccine greater than 3 yrs 10/28/2013 Influenza Vaccine less than 3 yrs 08/11/2015 Influenza Vaccine, Quadrivalent, PF 07/29/2018,0 07/23/2017 Influenza, High-dose, Quadrivalent 08/23/2021 Influenza, Seasonal, Injectable, Undefined 08/11,10/28/2013 Influenza, high-dose, trivalent, PF 08/03/2020,1 ,06/28/2016 PUR FLU HIGH DOSE (FLUZONE) 06/28/2016 PUR PCV-13 02/07/2016 Pneumococcal Vaccine - 13 Valent 02/07/2016 Pneumococcal Vaccine Adult - 23 Valent 7 Pneumococcal Vaccine, Unspec ified Formulation 10/28/2009 Family History Medical History Relation Name Comments Diabetes Father Heart Attack Father Diabetes Mother Heart Attack Mother Uterine Cancer Mother uterine Relation Name Status Comments Father Mother Social History Tobacco Use Types Packs/Day Years Used Date Smoking Tobacco: Never Smokeless Tobacco: Never Tobacco Cessation:Counseling Given: No Alcohol Use Standard Drinks/Week Comments No 0 (1 standard drink = 0.6 oz pur e alcohol) 2 drinks per year [facility] Utilities Answer Date Recorded In the past 12 months has [employer] Control, gas, oil, or water company threatened to shut off services in your home? No 08/24/2024 Social Connection and Isolation Panel Answer Date Recorded In a typical week, how many times do you talk on the phone with family, friends, or neighbors? Three times a week 08/24/2024 How often do you get togethe r with friends or relatives? Once a week 08/24/2024 How often do you attend [facility] or evangelical services? More than 4 times per year 08/24/2024 Do you belong to any clubs o r organizations such as yazdanism groups, unions, fraternal or athletic groups, or school groups? Patient declined 08/24/2024 How often do you attend meet ings of the clubs or organizations you belong to? Patient declined 08/24/2024 Are you , , di vorced, , never , or living with a partner? 08/24/2024 AUDIT-C Answer Date Recorded Q1: How often do you have a drink containing alcohol? Never 08/24/2024 Q2: How many drinks containi ng alcohol do you have on a typical day when you are drinking? Patient does not drink Q3: How often do you have si x or more drinks on one occasion? Patient declined 08/24/2024 Overall Financial Resource Strain (CARDIA) Answe r Date Recorded How hard is it for you to pa y for the very basics like food, housing, medical care, and heating? Patient declined 08/24/2024 PHQ-2 Answer Date Recorded Total Score - Questions 1-9 0 03/28 [facility] - Occupational Stress Questionnaire Answer Date Recorded Do you feel stress - tense, restless, nervous, or anxious, or unable to sleep at night because your mind is troubled all the time - these days? Only a little 08/24/2024 Exercise Vital Sign Answer Date Recorde d On average, how many days pe r week do you engage in moderate to strenuous exercise (like a brisk walk)? 0 days 08/24/2024 On average, how many minutes do you engage in exercise at this level? 0 min 08/24/2024 Hunger Vital Sign Answer Date Recorded Within the past 12 months, y ou worried that your food would run out before you got the money to buy more. Patient declined Within the past 12 months, t he food you bought just didn't last and you didn't have money to get more. Patient declined PRAPARE - Transportation Answer Date Re corded In the past 12 months, has l ack of transportation kept you from medical appointments or from getting medications? No 07/29 In the past 12 months, has l ack of transportation kept you from meetings, work, or from getting things needed for daily living? No 08/24/2024 Housing Stability Vital Sign Answer Dylon e [...] place to sleep or slept in a custodial (including now)? No 02/17/2024 Housing Stability Vital Sign Answer Dylon e Recorded In the last 12 months, was t here a time when you were not able to pay the mortgage or rent on time? Patient declined 08/24/20 Number of Times Moved in the Last Year Not on fi le 08/24/2024 At any time in the past 12 m [facility], were you homeless or living in a custodial (including now)? No 08/24/2024 Education Answer Date Recorded What is the [...] Sign Reading Time Taken Comments Blood Pressure 112/60 04/09/2025 10:31 AM CDT Pulse 71 04/09/2025 10:31 AM CDT Temperature 36.5 C (97.7 F) 04/09/2025 10:31 AM CDT Respiratory Rate 12 04/09/2025 10:31 AM CDT Oxygen Saturation 96% 04/09/2025 10:31 AM CDT Inhaled Oxygen Concentration - - Weight 83.5 kg (184 lb) 04/09/2025 10:31 AM CDT Height 154.9 cm (5' 1) 02/19/2024 11:14 AM CDT Body Mass Index 34.77 02/19/2024 11:14 AM CDT Plan of Treatment Upcoming Encounters Date Type Department Care Team (Late st Contact Info) Description 10/13/2025 10:45 AM MATERIAL HANDLING EQUIPMENT [employer]EV[employer] Office Visit [facility] [place] [address] [place] [phone] Anny Sheikh, PAC [address] [place] [address] Health Maintenance Due Date Last Done Comments Diabetes: Foot Exam 1950 Hepatitis C Virus (HCV) Screening 1950 TdaP Immunization 1950 Zoster Immunization (1 of 2) 1968 Discussion re Stopping Mammograms 2024 Respiratory Syncytial Virus (RSV) Immunization (Adult) (1 - 1-dose 75+ series) 2024 SARS-COV-2 Immunization (8 - Moderna risk season) 2025 07/16/2024, 08/21/2023, 08/14/2022, Additional history exists Influenza Immunization (#1) 06/28/202507/29, 09/13/2023, 08/09/2022, Additional history exists Diabetes: Hemoglobin A1c 09/24/2025 025, 10/01/2024, 08/19/2024, Additional history exists Mammogram 11/28/2025 11/28/2024, 12/03/2023, 08/24/2022, Additional history exists Diabetes: Nephropathy Screening 02/22/2026 02/22/2025, 08/19/2024, 11/06/2023, Additional history exists Diabetes: Eye Exam 04/06/2026 04/06/2025, 0 04/06/2025, 07/14/2024, Additional history exists DEXA Bone Density 11/28/2026 11/28/2024, , 06/21/2020, Additional history exists Pneumococcal Immunization (50+ years) Completed 07/23/2017, 02/07/2016, 02/07/2016, Additional history exists Pneumococcal Immunization Combined Discontinued 07/23/2017, 02/07/2016, 02/07/2016, Additional history exists Colonoscopy Discontinued 06/17/2018, 10/28/2007 Colorectal Cancer Screening Discontinued Cologuard Discontinued Hepatitis B Immunization Aged Out No longer eligible based on patient's age to complete this topic Human Papillomavirus (HPV) Immunization Aged Out No longer eligible based on patient's age to complete this topic Immunochemical Fecal Occult Blood Discontinued Meningococcal Immunization (ACWY) Aged Out No longer eligible based on patient's age to complete this topic Rotavirus Immunization Aged Out No lo nger eligible based on patient's age to complete this topic Procedures Procedure Name Priority Date/Time Associated Diagnosis Comments GYNECOLOGY/ONCOLOGY CONSULT 05/05/2025 12:00 AM CDT HM DILATED EYE EXAM 04/06/2025 1 2:00 AM CDT HM DILATED EYE EXAM 04/06/2025 1 2:00 AM CDT CBC WITH AUTO DIFFERENTIAL Routine 02/22/2025 7:54 AM CDT Essential hypertension CMP (COMPREHENSIVE METABOLIC PANEL) Routine 02/22/2025 7:54 AM CDT Kidney disease COMPLETE BLOOD COUNT (CBC) WITH DIFF Routine 02/22/2025 7:54 AM CDT Essential hypertension LIPID PANEL Routine 02/22/2025 7:54 AM CDT Hyperlipidemia, unspecified hyperlipidemia type XR - ABDOMEN/PELVIS 02/08/2025 1 2:00 AM CDT LATHA BONE DENSITOMETRY AXIAL SKELETON Routine 11/28/2024 11:33 AM [employer]ORE Post-menopausal [facility] SCREENING BILATERAL DIGITAL W CAD W YUE Routine 11/28/2024 11:22 AM [employer] ST[employer] Screening mammogram, encounter for HEMOGLOBIN A1C W/ ESTIMATED GLUCOSE Routine 08/19/2024 7:20 AM CDT Type 2 diabetes mellitus without complication, unspecified whether prison insulin use (HCC) Hyperlipidemia, unspecified hyperlipidemia type Kidney disease Essential hypertension from Last 3 Months or Most Recently Relevant to Health Maintenance Results * GYNECOLOGY/ONCOLOGY CONSULT (05/05/2025 12:00 AM CDT) 05/05/2025 us Provider Scan GENERIC SCAN ORDERS CONSULT Janette l Result SCAN * HM DILATED EYE EXAM (04/06/2025 12:00 AM CDT) Only the most recent of2 resultswithin the time period is included. 04/06/2025 us Provider Scan PROCEDURE/MINOR SURGICAL ORDERAB LES Final Result SCAN * (ABNORMAL) CBC WITH AUTO DIFFERENTIAL (02/22/2025 7:54 AM CDT) WBC 6.60 4.00 - 12.00 10(3)/mcL 02/22/2025 8:57 AM CDT [facility] RBC 4.09 3.80 - 5.30 10(6)/mcL 02/22/2025 8:57 AM CDT [facility] HEMOGLOBIN (HGB) 12.5 12.0 - 15.8 g/dL 02/22/2025 8:57 AM CDT [facility] HEMATOCRIT (HCT) 38.3 36.0 - 47.0 % 02/22/2025 8:57 AM CDT [facility] MCV 93.6 82.0 - 96.0 fL 02/22/2025 8:57 AM CDT [facility] MCH 30.6 26.0 - 34.0 pg 02/22/2025 8:57 AM CDT [facility] MCHC 32.6 31.0 - 36.0 g/dL 02/22/2025 8:57 AM CDT [facility] PLATELET COUNT 179 140 - 440 10(3)/mcL 02/22/2025 8:57 AM CDT [facility] RDW 12.8 11.8 - 15.5 % 02/22/2025 8:57 AM CDT [facility] MPV 9.2(L) 9.7 - 12.4 fL 02/22/2025 8:57 AM CDT [facility] NEUTROPHILS 54.8 47.0 - 73.0 % 02/22/2025 8:57 AM CDT [facility] LYMPHOCYTES 34.8 18.0 - 42.0 % 02/22/2025 8:57 AM CDT [facility] MONOCYTES 5.0 4.0 - 12.0 % 02/22/2025 8:57 AM CDT [facility] EOSINOPHILS 4.5 0.0 - 5.0 % 02/22/2025 8:57 AM CDT [facility] BASOPHILS 0.9 0.0 - 1.0 % 02/22/2025 8:57 AM CDT [facility] ABSOLUTE NEUTROPHILS 3.61 1.60 - 7.70 10(3)/[facility] 02/22/2025 8:57 AM CDT [facility] ABSOLUTE LYMPHOCYTES 2.30 1.30 - 3.20 10(3)/[facility] 02/22/2025 8:57 AM CDT [facility] ABSOLUTE MONOCYTES 0.33 0.20 - 1.00 10(3)/mcL 02/22/2025 8:57 AM CDT [facility] ABSOLUTE EOSINOPHIL 0.30 0.00 - 0.40 10(3)/[facility] 02/22/2025 8:57 AM CDT [facility] ABSOLUTE BASOPHILS 0.06 0.00 - 0.10 10(3)/[facility] 02/22/2025 8:57 AM CDT [facility] NRBC PER 100 WBC 0 02/23/20 8:57 AM CDT [facility] Blood Venipuncture / Unknown 02/22/2025 7:54 AM CDT 02/22/2025 8:53 AM CDT Anny Sheikh PAC HEMATOLOGY ORDERA BLES Final Result [facility] [address] [place] [address] * (ABNORMAL) LIPID PANEL (02/22/2025 7:54 AM CDT) CHOLESTEROL 118 <200 mg/dL 02/22/2025 9:23 AM CDT [facility] TRIGLYCERIDES 157(H) <150 mg/dL 02/22/2025 9:23 AM CDT [facility] HDL CHOLESTEROL 37(L) >40 mg/dL 9:23 AM CDT [facility] LDL 50 <130 mg/dL 02/22/2025 9:23 AM CDT [facility] VLDL 31 10 - 50 mg/dL 02/22/2025 9:23 AM CDT [facility] CHOL/HDL RATIO 3.2 0.0 - 4.4 02/22/2025 9:23 AM CDT [facility] NON-HDL CHOLESTEROL 81 <130 mg/dL 02/22/2025 9:23 AM CDT [facility] IS THE PATIENT REQUIRED TO BE FASTING? Yes 02/22/2025 9:23 AM CDT [facility] HAS THE PATIENT BEEN FASTING? Yes 02/22/2025 9:23 AM CDT [facility] Blood Venipuncture / Unknown 02/22/2025 7:54 AM CDT 02/22/2025 8:53 AM CDT Anny Sheikh PAC CHEMISTRY ORDERAB LES Final Result [facility] [address] [place] [address] * (ABNORMAL) CMP (COMPREHENSIVE METABOLIC PANEL) (02/22/2025 7:54 AM CDT) SODIUM 136 136 - 145 mmol/L 02/22/2025 9:23 AM CDT [facility] POTASSIUM 4.4 3.5 - 5.1 mmol/L 02/22/2025 9:23 AM CDT [facility] CHLORIDE 100 98 - 107 mmol/L 02/22/2025 9:23 AM T [facility] CO2, VENOUS 29 22 - 30 mmol/L 02/22/2025 9:23 AM CDT [facility] ANION GAP 11.4 <18.0 mmol/L 02/22/2025 9:23 AM CDT [facility] GLUCOSE 149(H) 70 - 99 mg/dL 02/22/2025 9:23 AM CDT [facility] BUN 45(H) 10 - 20 mg/dL 02/22/2025 9:23 AM T [facility] CREATININE, BLOOD 1.60(H) 0.60 - 1.00 mg/dL 02/22/2025 9:23 AM T [facility] BUN/CREATININE RATIO 28(H) 12 - 20 ratio 02/22/2025 9:23 AM CDT [facility] TOTAL PROTEIN 6.9 6.0 - 8.0 g/dL 02/22/2025 9:23 AM T [facility] ALBUMIN 4.0 3.5 - 5.0 g/dL 02/22/2025 9:23 AM T [facility] A/G RATIO 1.4 1.0 - 2.2 02/22/2025 9:23 AM CDT [facility] CALCIUM 9.8 8.7 - 10.5 mg/dL 02/22/2025 9:23 AM T [facility] T BILI 0.4 0.2 - 1.2 mg/dL 02/22/2025 9:23 AM CDT [facility] SGOT (AST) 33 <43 U/L 02/22/2025 9:23 AM CDT [facility] SGPT (ALT) 31 <56 U/L 02/22/2025 9:23 AM CDT [facility] ALKALINE PHOSPHATASE 34(L) 40 - 150 U/L 02/22/2025 9:23 AM CDT [facility] IS THE PATIENT REQUIRED TO BE FASTING? No 02/22/2025 9:23 AM CDT [facility] GFR, ESTIMATED 33(L) >=60 02/22/2025 9:23 AM CDT [facility] Comment: Creatinine Clearance is the preferred criteria for selecting drug dose adjustments in renally impaired patients. The GFR is provided as additional pertinent clinical information. GFR is reported in mL/min/1.73 sq m. Calculation based on the Chronic Kidney Disease Epidemiology Collaboration (CKD- EPI) equation refit without adjustment for race. GFR, EST. 38(L) >=60 025 9:23 AM CDT [facility] GFR, EST. NONAFRICAN 31(L) >=60 02/22/2025 9:23 AM CDT [facility] Blood Venipuncture / Unknown 02/22/2025 7:54 AM CDT 02/22/2025 8:53 AM CDT Anny Sheikh PAC CHEMISTRY ORDERAB LES Final Result Performing Organization Address City/[facility]/ZIP Co de Phone Number [facility] [address] [place] [address] * XR - ABDOMEN/PELVIS (02/08/2025 12:00 AM CDT) 02/08/2025 us Provider Scan IMG DIAGNOSTIC ORDERABLES Final Result SCAN * LATHA BONE DENSITOMETRY AXIAL SKELETON (11/28/2024 11:33 AM [employer]) Anatomical Region Laterality Modality BODY N/A Computed Radiogr aphy 11/29/2024 8:29 AM [employer] Impressions 11/29/2024 8:31 AM [employer] IMPRESSION: Low Bone Mass. REFERENCE: Bone mineral density: T-Score: Normal (T-score above or = -1.0) Low bone mass (T-score between -1.0 and -2.5) replaces the previously used term osteopenia Osteoporosis (T-score = or below -2.5) Z-Score: Within the expected range for age (Z-score above -2.0) Below the expected range for age (Z-score is -2.0 or below) Please see below follow up recommendations. Medical evaluation for secondary causes of low bone mineral density may be appropriate. FRAX is a World Health Organization validated fracture risk assessment tool that calculates a person's 10 year probability of a major osteoporosis related fracture and hip fracture. According to the National Osteoporosis Foundation guidelines, postmenopausal women and men age 50 or older with low bone mass and a 10 year probability of a major osteoporosis related fracture = or greater than 20% or a 10 year probability of a hip fracture = or greater than 3% should be considered for pharmacological treatment for the prevention of osteoporosis. For further information, including treatment recommendations, please refer to the 2019 ISCD Official Positions (http://www.iscd.org) and the NOF's Clinician's Guide to Prevention and Treatment of Osteoporosis (http://www.nof.org/professionals/clinical-guidelines) Narrative 11/29/2024 8:31 AM [employer] EXAM DESCRIPTION: [facility] BONE DENSITOMETRY AXIAL SKELETON REASON FOR STUDY: 74 y/o year old F with given history of: post menopause Medical Science Liaison/Model: [id number] (S/N [id number]) Facility LSC value of 0.028 for the AP spine and 0.033 for the femur. CLINICAL INFORMATION: Current height: 61 inches Maximum height: 62 inches Weight: 186 pounds Risk factors: Postmenopausal, steroid use COMPARISON: 08/24/2022 FINDINGS: AP LUMBAR SPINE L1-L4: Total BMD is 1.498 g/cm2 T-score is 2.4 This is increased in comparison to prior exam which is not statistically significant. LEFT forearm: 33% radius BMD is 0.715 g/cm2 T-score is -1.9 This is decreased in comparison to prior exam which is not statistically significant. FRAX: FRAX tool cannot be utilized as T-Score for mandatory regions required to calculate FRAX is unavailable. THIS IS AN ELECTRONICALLY VERIFIED FINAL REPORT 11/29/2024 8:29 AM - Electronically signed by Yury Clements M.D. MF: [id number] Report ID: [id number] Reading Location: [place] [address] Procedure Note Yury Clements MD - 11/29/2024 EXAM DESCRIPTION: [facility] BONE DENSITOMETRY AXIAL SKELETON REASON FOR STUDY: 74 y/o year old F with given history of: post menopause Medical Science Liaison/Model: Sqeeqee (S/N [id number]) Facility LSC value of 0.028 for the AP spine and 0.033 for the femur. CLINICAL INFORMATION: Current height: 61 inches Maximum height: 62 inches Weight: 186 pounds Risk factors: Postmenopausal, steroid use COMPARISON: 08/24/2022 FINDINGS: AP LUMBAR SPINE L1-L4: Total BMD is 1.498 g/cm2 T-score is 2.4 This is increased in comparison to prior exam which is not statistically significant. LEFT forearm: 33% radius BMD is 0.715 g/cm2 T-score is -1.9 This is decreased in comparison to prior exam which is not statistically significant. FRAX: FRAX tool cannot be utilized as T-Score for mandatory regions required to calculate FRAX is unavailable. THIS IS AN ELECTRONICALLY VERIFIED FINAL REPORT 11/29/2024 8:29 AM - Electronically signed by Yury Clements M.D. MF: [email or web address] Report ID: [id number] Reading Location: [place] [address] IMPRESSION: Low Bone Mass. REFERENCE: Bone mineral density: T-Score: Normal (T-score above or = -1.0) Low bone mass (T-score between -1.0 and -2.5) replaces the previously used term osteopenia Osteoporosis (T-score = or below -2.5) Z-Score: Within the expected range for age (Z-score above -2.0) Below the expected range for age (Z-score is -2.0 or below) Please see below follow up recommendations. Medical evaluation for secondary causes of low bone mineral density may be appropriate. FRAX is a World Health Organization validated fracture risk assessment tool that calculates a person's 10 year probability of a major osteoporosis related fracture and hip fracture. According to the National Osteoporosis Foundation guidelines, postmenopausal women and men age 50 or older with low bone mass and a 10 year probability of a major osteoporosis related fracture = or greater than 20% or a 10 year probability of a hip fracture = or greater than 3% should be considered for pharmacological treatment for the prevention of osteoporosis. For further information, including treatment recommendations, please refer to the 2019 ISCD Official Positions (http://www.iscd.org) and the NOF's Clinician's Guide to Prevention and Treatment of Osteoporosis (http://www.nof.org/professionals/clinical-guidelines) Anny Clark Kori PAC IMG DEXA ORDERABL ES Final Result * LATHA SCREENING BILATERAL DIGITAL W CAD W YUE (11/28/2024 11:22 AM [employer]) Anatomical Region Laterality Modality breast Bilateral Mammography 11/28/2024 11:4 4 AM [employer] [facility] Narrative 11/30/2024 5:15 PM [employer] [facility] - LATHA SCREENING BILATERAL DIGITAL W CAD W YUE BILATERAL DIGITAL SCREENING MAMMOGRAM 3D/2D WITH CAD WITH MEDIOLATERAL OBLIQUE CRANIOCAUDAL: 11/28/2024 The study was acquired using digital technology and interpreted from soft copy. Current study was also evaluated with ICAD version 7.2. 2D digital mammographic views, as well as 3D digital tomosynthesis were performed in the CC and MLO projections. CLINICAL: Routine screening. Patient has no complaints. Patient reports 20 pound weight loss since last mammogram. Port in right chest. Personal history of ovarian cancer. No family history of breast cancer. COMPARISONS: Comparison is made to exams dated: 08/24/2022, 08/16/2021, and 10/02/2023 [facility]. BREAST TISSUE:The breasts are heterogeneously dense, which may obscure small masses. FINDINGS: There are benign calcifications in both breasts. No significant masses, calcifications, or other findings are seen in either breast. There has been no significant interval change. IMPRESSION: BENIGN There is no mammographic evidence of malignancy. A 1 year screening mammogram is recommended. A letter will be sent to the patient with these results. The patient will be entered into a reminder system with a target due date of 1 year for her next screening exam. Electronically signed by: Sarita Terry M.D. ll/penrad:11/30/2024 11:55:43 Groundhand(s): DOT GuzmanR)(M), [facility] letter sent: Normal Exam Reading location: [facility] Mammogram BI-RADS: Category 2: Benign Procedure Note Sarita Terry MD - 11/30/2024 - LATHA SCREENING BILATERAL DIGITAL W CAD W YUE BILATERAL DIGITAL SCREENING MAMMOGRAM 3D/2D WITH CAD WITH MEDIOLATERAL OBLIQUE CRANIOCAUDAL: 11/28/2024 The study was acquired using digital technology and interpreted from soft copy. Current study was also evaluated with Washio version 7.2. 2D digital mammographic views, as well as 3D digital tomosynthesis were performed in the CC and MLO projections. CLINICAL: Routine screening. Patient has no complaints. Patient reports 20 pound weight loss since last mammogram. Port in right chest. Personal history of ovarian cancer. No family history of breast cancer. COMPARISONS: Comparison is made to exams dated: 08/24/2022, 08/16/2021, and 10/02/2023 [facility]. BREAST TISSUE:The breasts are heterogeneously dense, which may obscure small masses. FINDINGS: There are benign calcifications in both breasts. No significant masses, calcifications, or other findings are seen in either breast. There has been no significant interval change. IMPRESSION: BENIGN There is no mammographic evidence of malignancy. A 1 year screening mammogram is recommended. A letter will be sent to the patient with these results. The patient will be entered into a reminder system with a target due date of 1 year for her next screening exam. Electronically signed by: Sarita amos/penrad:11/30/2024 11:55:43 Groundhand(s): RT Thomas(R)(M), [facility] letter sent: Normal Exam Reading location: [facility] Mammogram BI-RADS: Category 2: Benign Anny Sheikh [facility] MAMMO ORDERAB LES Final Result * (ABNORMAL) HEMOGLOBIN A1C W/ ESTIMATED GLUCOSE (08/19/2024 7:20 AM CDT) HGB-A1C 6.7(H) 4.0 - 6.0 % 08/19/2024 9:45 AM CDT [facility] Est Average Glucose 145.6 mg/dL 08/19/2024 9:45 AM CDT [facility] Blood Venipuncture / Unknown 08/19/2024 7:20 AM CDT 08/19/2024 7:56 AM CDT Narrative [facility] - 08/19/2024 9:45 AM CDT HEMOGLOBIN A1C: DIABETIC PATIENTS: WELL-CONTROLLED: 6.2 - 7.0 INTERMEDIATE WELL-CONTROLLED: 7.0 - 9.0 POORLY-CONTROLLED: >9.0 Anny Sheikh PAC CHEMISTRY ORDERAB LES Final Result [facility] [address] [place] [address] from Last 3 Months or Most Recently Relevant to Health Maintenance Insurance MEDIC[employer] Care Teams Senior Linux Engineer Relationship Specialty Start Date End Date Anny Sheikh PAC [address] [place] [address] PCP - General Physician Induction Coordination Power Engineer 09/26/16
--- NOTE | 2025-05-07 12:42 | ECHO_ITS ---
Patient Info Name: Francisca Flores Age: 75 years : 1950 Gender: Female Ht: 61 in Wt: 184 lbs BSA: 1.93 m2 HR: 67 bpm BP: 122 / 63 mmHg Heart Rhythm: Sinus Rhythm Technical Quality: Fair Exam Date: 05/07/2025 1:32 PM Patient Status: O Admit Date: 05/07/2025 Exam Type: CA echo doppler color flow Complete two-dimensional, color flow and Doppler transthoracic echocardiogram is performed. Grease Renderer: Lisa Salas Attending Provider: Fei Tovar DO Summary 1. Complete two-dimensional, color flow and Doppler transthoracic echocardiogram is performed. 2. Left ventricular chamber dimension is normal. 3. Left ventricular systolic function is normal, estimated at 65-70. 4. The left ventricular diastolic function is grade I diastolic dysfunction. 5. E/e' 21 is elevated. 6. Left atrial chamber dimension is mildly enlarged. 7. The aortic valve is not well visualized. Cannot determine number of aortic valve leaflets. 8. There is moderate aortic valve sclerosis. 9. There is moderate aortic valve stenosis with a peak velocity of 247 cm/s, mean gradient of 12 mmHg, and aortic valve area of 1.3 cm2. 10. There is trace aortic valve regurgitation. 11. There is trace tricuspid valve regurgitation. 12. No pulmonary hypertension, estimated pulmonary arterial systolic pressure is 30 mmHg. Left Ventricle E/e' 21 is elevated. Left ventricular chamber dimension is normal. Left ventricular systolic function is normal, estimated at 65-70. The left ventricular diastolic function is grade I diastolic dysfunction. Right Ventricle Right ventricular chamber dimension is normal. Right ventricular systolic function is normal and with normal TAPSE 2.0 cm. Left Atria Left atrial chamber dimension is mildly enlarged. Right Atria Right atrial chamber dimension is normal. Aortic Valve The aortic valve is not well visualized. Cannot determine number of aortic valve leaflets. There is moderate aortic valve sclerosis. There is moderate aortic valve stenosis with a peak velocity of 247 cm/s, mean gradient of 12 mmHg, and aortic valve area of 1.3 cm2. There is trace aortic valve regurgitation. Pulmonic Valve There is no pulmonic regurgitation. Mitral Valve There is no mitral valve stenosis. There is no mitral valve regurgitation. Tricuspid Valve There is trace tricuspid valve regurgitation. No pulmonary hypertension, estimated pulmonary arterial systolic pressure is 30 mmHg. Pericardium/Pleural There is no pericardial effusion. Inferior Vena Cava Normal inferior vena cava with >50% collapse upon inspiration consistent with normal right atrial pressure, 5 mmHg. Aorta The aortic root size at the sinus of Valsalva is normal. Left Ventricular Outflow Tract Name Value Normal LVOT 2D LVOT Diameter 2.0 cm LVOT Doppler LVOT Peak Velocity 98 cm/s LVOT Peak Gradient 4 mmHg LVOT Mean Gradient 2 mmHg LVOT VTI 22 cm LVOT VTI/AV VTI Ratio 0.4 LVOT Stroke Volume 68 ml LVOT CO 4.7 l/min LVOT CI 2.4 l/min/m2 Pulmonic Valve Name Value Normal RVOT Doppler RVOT Peak Velocity 89 cm/s RVOT Peak Gradient 3 mmHg PV Doppler PV Peak Velocity 110 cm/s PV Peak Gradient 5 mmHg Mitral Valve Name Value Normal MV Diastolic Function MV E Peak Velocity 95 cm/s MV A Peak Velocity 123 cm/s MV E/A 0.8 MV Decel Time (PW) 276 ms MV Annular TDI MV E/e' (Septal) 20.1 MV E/e' (Lateral) 23.6 MV E/e' (Average) 21.8 Tricuspid Valve Name Value Normal TV Regurgitation Doppler TR Peak Velocity 252 cm/s TR Peak Gradient 25 mmHg Estimated PAP/RSVP RA Pressure 5 mmHg <=5 PA Systolic Pressure 30 mmHg <36 RV Systolic Pressure 30 mmHg <36 TV Annular TDI TV Lateral Mary s' Velocity 10.6 cm/s >=9.5 Aortic Valve Name Value Normal AV Doppler AV Peak Velocity 247 cm/s AV Peak Gradient 24 mmHg AV Mean Gradient 12 mmHg AV VTI 52 cm AV Area (Cont Eq VTI) 1.3 cm2 >=3.0 AV Area (Cont Eq Bony) 1.3 cm2 AV DI (Bony) 0.40 AV Regurgitation 2D LVOT Area 3.2 cm2 Ventricles Name Value Normal LV Dimensions 2D/MM IVS Diastolic Thickness (2D) 1.1 cm 0.6-1.0 LVID Diastole (2D) 4.3 cm 3.8-5.2 LVIW Diastolic Thickness (2D) 1.0 cm 0.6-0.9 LVID Systole (2D) 2.8 cm 2.2-3.5 LVOT Diameter 2.0 cm LV Mass (2D Cubed) 156.19 g 67.00-162.00 LV Mass Index (2D Cubed) 81 g/m2 43-95 Relative Wall Thickness (2D) 0.47 <=0.42 LV Fractional Shortening/Ejection Fraction 2D/MM LV Fractional Shortening (2D) 36 % 27-45 LV EF (2D Teichholz) 65 % LV Diastolic Volume (4C MOD) 44 ml LV EF (4C MOD) 65 % LV Diastolic Volume (2C MOD) 32 ml LV EF (2C MOD) 68 % LV Diastolic Volume (BP MOD) 39 ml 46-106 LV Diastolic Volume Index (BP MOD) 20 ml/m2 29-61 LV Systolic Volume (BP MOD) 13 ml 14-42 LV Systolic Volume Index (BP MOD) 6 ml/m2 8-24 LV EF (BP MOD) 68 % 54-74 LV Diastolic Length (4C) 7.0 cm LV Systolic Length (4C) 5.8 cm LV Stroke Volume (4C MOD) 29 ml Atria Name Value Normal LA Dimensions LA Volume (4C A-L) 49 ml LA Volume (BP A-L) 49 ml RA Dimensions RA Area (4C) 15.7 cm2 <=18.0 Report Signatures
== END 2025-05-07 12:34 | disposition home or self-care (01) ==
LOC: ANHCARD 12:34
PROVIDERS: PCP Physician Assistant Medical; Visit Provider Internal Medicine Cardiovascular Disease
DX: I35.0 Nonrheumatic aortic (valve) stenosis (principal)
CPT/HCPCS: 93306